=== PATIENT | male | born 1975 | race Caucasian/White ===

== ENCOUNTER 2024-06-16 02:16 | Observation (INO) | payer BC ==
[2024-06-16 03:40] LABS: #Basophils 0.04 10x3/uL (0.0-0.2); #Eosinophils Less than 0.03 10x3/uL (0.0-0.7); %Basophils 0.2 % (0.0-1.0); %Lymphocytes 2.6 % (21.0-51.0); %Monocytes 5.3 % (0.0-10.0); %Neutrophils 91.4 % (42.0-75.0); Hematocrit 44.4 % (42.0-52.0); Hemoglobin 14.7 g/dL (14.0-18.0); Mean Corpuscular HGB CONC 33.1 g/dL (32.0-36.0); Mean Corpuscular Hemoglobin 28.1 pg (27.0-31.0); Mean Corpuscular Volume 84.9 fL (78.0-98.0); Mean Platelet Volume 9.7 fL (7.4-10.4); Platelet Count 223 10x3/uL (130-400); Red Blood Cell (RBC) Count 5.23 mill/uL (4.70-6.10)
[2024-06-16] MEDS ORDERED: Morphine 4 MG/ML VIAL ONE (04:01)
[2024-06-16] MEDS ORDERED: Ondansetron PF 4 MG/2 ML Vial ONE ×2 (04:01→12:31)
[2024-06-16] MEDS ORDERED: Ketorolac Tromethamine 30 MG (1 mL) VIAL ONE (04:01)
[2024-06-16 04:09] LABS: ALT (SGPT) 23 U/L (8-55); AST (SGOT) 19 U/L (5-34); Alkaline Phosphatase 46 U/L (40-110); Anion Gap 14 mmol/L (10-20); BUN (Urea Nitrogen) 17 mg/dL (8.9-20.6); Bilirubin, Total 0.7 mg/dL (0.2-1.2); Calc. Creatinine Clearance 0 mL/min (70-130); Calcium 9.3 mg/dL (7.8-10.44); Carbon Dioxide 22 mmol/L (22-29); Chloride 105 mmol/L (98-107); Estimated GFR 95; Glucose 156 mg/dL (70-105); Potassium 4.2 mmol/L (3.5-5.1); Sodium 137 mmol/L (136-145)
[2024-06-16 04:48] LABS: Bacteria/HPF None Seen HPF (None Seen); Bilirubin Negative (Negative); Blood, Urine Negative (Negative); CAUTI Indications for Culture Pelvic or flank pain; Clarity Clear (Clear); Glucose, Urine (Dipstick) Normal (Negative); Ketone, Urine Trace mg/dL (Negative); Leukocyte Negative Leu/uL (Negative); Nitrite Negative (Negative); Protein, Urine (Dipstick) 20 mg/dL (Neg-Trace); RBC/HPF 0-3 HPF (0-3); Specific Gravity, Urine 1.043 (1.002-1.036); Squamous Epithelial None Seen HPF (0-3); Urobilinogen Normal mg/dL (Less than 2); WBC/HPF 0-3 HPF (0-3)
[2024-06-16 04:51] LABS: Urine Culture Reflex No No
[2024-06-16] MEDS ORDERED: Piperacillin/Tazobactam 4.5 GM VIAL ONE (04:58)
[2024-06-16] MEDS ORDERED: Sodium Chloride 0.9% 100 ML ONE (04:58)
[2024-06-16] MEDS ORDERED: Ondansetron PF 4 MG/2 ML Vial IVP PRN (05:30)
[2024-06-16] MEDS ORDERED: Ondansetron ODT 4 MG TAB SL PRN (05:30)
[2024-06-16] MEDS ORDERED: Morphine 4 MG/ML VIAL SLOW IVP PRN (05:31)
[2024-06-16] MEDS ORDERED: traMADol HCl 50 MG TAB PO PRN ×3 (06:24→12:07)
[2024-06-16] MEDS ORDERED: Ibuprofen 600 MG TAB PO PRN ×2 (06:24→12:03)
[2024-06-16 07:37] VITALS: BMI 31.6
[2024-06-16] MEDS: Morphine 2 MG/ML VIAL SLOW IVP PRN (07:43)
[2024-06-16] MEDS: Sodium Chloride 0.9% 1,000 ML IV SCH (07:44)
[2024-06-16] MEDS: Ketorolac Tromethamine 30 MG (1 mL) VIAL IVP SCH (07:45)
[2024-06-16] MEDS: Piperacillin/Tazobactam 3.375 GM in Sodium Chloride 0.9% 100 ML IVPB SCH (09:20)
[2024-06-16] MEDS: Acetaminophen 500 MG TAB PO SCH (09:20)
[2024-06-16] MEDS ORDERED: EPINEPHrine 1 MG/ML VIAL ONE (11:42)
[2024-06-16] MEDS ORDERED: Bupivacaine PF 0.5% 30 ML VIAL ONE (11:43)
[2024-06-16] MEDS ORDERED: Iopamidol-370 76% 500 ML MDV (1 ML CHARGE) ONE (11:47)
[2024-06-16] MEDS ORDERED: Lidocaine 2% PF 5 ML VIAL ONE (11:49)
[2024-06-16] MEDS ORDERED: PROPOFOL 20 ML ONE (11:49)
[2024-06-16] MEDS ORDERED: fentaNYL PF 100 MCG/2 ML SYRINGE ONE (11:49)
[2024-06-16] MEDS ORDERED: Rocuronium Bromide 10 MG/ML (10ML VIAL) ONE (11:50)
[2024-06-16] MEDS ORDERED: Ketorolac Tromethamine 30 MG (1 mL) VIAL IVP SCH (12:00)
[2024-06-16] MEDS ORDERED: Acetaminophen 325 MG TAB PO SCH (12:00)
[2024-06-16] MEDS ORDERED: traMADol HCl 50 MG TAB PO SCH (12:00)
[2024-06-16] MEDS ORDERED: Dexamethasone 20 MG/5 ML VIAL ONE (12:31)
[2024-06-16] MEDS ORDERED: SUGAMMADEX SODIUM 200 MG/2 ML VIAL ONE (12:45)
[2024-06-16 16:57] VITALS: BP 116/76; TEMP 98
[2024-06-16] MEDS ORDERED: Atorvastatin Calcium 20 MG TAB PO SCH (21:00)
[2024-06-17] MEDS ORDERED: Losartan 25 MG TAB PO SCH (09:00)
[2024-06-17] MEDS ORDERED: Fenofibrate Nanocrystallized 145 MG TAB PO SCH (09:00)
[2024-06-17] MEDS ORDERED: Hydrochlorothiazide 25 MG TAB PO SCH (09:00)
== END 2024-06-16 17:21 | disposition home or self-care (01) ==
LOC: ERS 02:16 → T4-A 06:54
PROVIDERS: ADMIT Student in an Organized Health Care Education/Training Program; ATTEND Student in an Organized Health Care Education/Training Program
PROC: 0DTJ4ZZ Resection of Appendix, Percutaneous Endoscopic Approach (ICD-10-PCS; principal; 2024-06-16)
DX: K35.80 Unspecified acute appendicitis (principal); I10 Essential (primary) hypertension; Z79.899 Other long term (current) drug therapy; E78.5 Hyperlipidemia, unspecified; Z98.52 Vasectomy status; Z98.890 Other specified postprocedural states
CPT/HCPCS: 36415; 74177; 80053; 81001; 83605; 85025; 87040; 88304; 96374; 96375; A4314; A4649; G0378; J0171; J0665; J1100; J1885; J2272; J2405; J2543; J2704; J7030; Q9967